=== PATIENT | male | born 1975 | race Caucasian/White ===

== ENCOUNTER 2021-01-24 21:15 | Emergency (ER) | payer OTHER ==
[2021-01-24] MEDS ORDERED: Acetaminophen 500 MG Tab PO ONE (21:31)
[2021-01-24] MEDS ORDERED: Dexamethasone 4 MG/ML SDV IM ONE (22:17)
--- NOTE | 2021-01-24 22:26 | EDM.PDOC ---
ED HPI GENERAL MEDICAL PROBLEM - General Chief Complaint: General Stated Complaint: s/t, fever, headache Time Seen by Provider: 01/24/21 21:42 Source of Information: Reports: Patient History Limitations: Reports: No Limitations - History of Present Illness INITIAL COMMENTS - FREE TEXT/NARRATIVE: John is a 45 yo male who presents to the ED with complaints of sore throat, headache and a fever. Symptoms started a couple days ago. Admits his son did have sinus symptoms roughly about 1 week ago. States he does have a history of strep throat. No known exposure to Covid. Denies any shortness of breath. Denies any loss of taste or smell. Denies any GI symptoms. 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 R) achilles tendon surgery Social & Family History - Tobacco Use Tobacco Use Status *Q: Never Tobacco User - Caffeine Use Caffeine Use: Reports: Soda - Recreational Drug Use Recreational Drug Use: No ED ROS GENERAL - Review of Systems Review Of Systems: See Below Constitutional: Reports: Fever, Chills HEENT: Reports: Sinus Problem, Throat Pain, Throat Swelling Respiratory: Denies: Shortness of Breath, Wheezing, Cough Cardiovascular: Reports: No Symptoms GI/Abdominal: Reports: No Symptoms : Reports: No Symptoms Musculoskeletal: Reports: No Symptoms. Denies: Muscle Pain, Muscle Stiffness Neurological: Reports: No Symptoms Psychiatric: Reports: No Symptoms ED EXAM, GENERAL - Physical Exam Exam: See Below Exam Limited By: No Limitations General Appearance: Alert, WD/WN, No Apparent Distress Ears: Normal External Exam, Normal Canal, Normal TMs Nose: Normal Inspection Throat/Mouth: Normal Lips, Normal Teeth, Normal Voice, No Airway Compromise, Inflammation (swelling/erythema posterior pharynx/uvula, no tonsillar exudate. ), Other (discomfort noted with swallowing. ) Head: Atraumatic, Normocephalic. No: Facial Swelling Neck: Normal Inspection, Supple. No: Lymphadenopathy (L), Lymphadenopathy (R) Respiratory/Chest: No Respiratory Distress, Lungs Clear, Normal Breath Sounds, No Accessory Muscle Use Cardiovascular: Regular Rate, Rhythm, No Murmur Neurological: Alert, Oriented Psychiatric: Normal Affect, Normal Mood Skin Exam: Warm, Dry, Intact Course - Vital Signs Last Recorded V/S: Last Vital Signs Temp 102.9 F H 01/24/21 21:34 Pulse 96 01/24/21 21:19 Resp 18 01/24/21 21:19 BP 162/97 H 01/24/21 21:19 Pulse Ox 95 01/24/21 21:19 - Orders/Labs/Meds Labs: Laboratory Tests 01/24/21 Range/Units 21:40 SARS CoV-2 RNA Rapid NEVAEH Positive H (NEGATIVE) Meds: Medications Discontinued Medications Generic Name Dose Route Start Last Admin Trade Name Roly PRN Reason Stop Dose Admin Acetaminophen 1,000 mg 01/24/21 21:31 01/24/21 21:34 Acetaminophen 500 Mg Tab PO 01/24/21 21:32 1,000 mg ONETIME ONE Administration Dexamethasone 8 mg 01/24/21 22:17 Dexamethasone 4 Mg/Ml Sdv IM 01/24/21 22:18 ONETIME ONE Departure - Departure Time of Disposition: 22:31 Disposition: Home, Self-Care 01 Clinical Impression: COVID-19 - Discharge Information *PRESCRIPTION DRUG MONITORING PROGRAM REVIEWED*: Not Applicable *COPY OF PRESCRIPTION DRUG MONITORING REPORT IN PATIENT MELQUIADES: Not Applicable Instructions: COVID-19 Frequently Asked Questions, COVID-19: What to Do If You Are Sick- [facility] (05/30/2020) Forms: ED Department Discharge Additional Instructions: 1) Dexamethasone injection given for swelling in throat tonight 2) Discussed Tylenol and ibuprofen, do not exceed 4000mg of Tylenol or 3200mg of ibuprofen in 24 hours 3) Rest and push fluids 4) May try Chloraseptic spray for throat discomfort 5) Vitamin C, D, Zinc discussed and dosages. 6) Order filled out for monoclonal antibodies. Pharmacist will call in the morning on when to come in. 7) Call or return if any complications, questions, worsening of symptoms or concerns. 8) Blood pressure did improve in the ED, recommend closely monitoring at home and if continues to be elevated, please follow up Sepsis Event Note (ED) - Evaluation Sepsis Screening Result: Possible Sepsis Risk - Focused Exam Vital Signs: Vital Signs Temp Temp Pulse Resp BP Pulse Ox 01/24/21 21:34 102.9 F H 01/24/21 21:19 102.9 F H 96 18 162/97 H 95 - Problem List & Annotations (1) COVID-19 SNOMED Code(s): 033537863 Code(s): U07.1 - COVID-19 Status: Acute - Assessment/Plan Plan: Patient's strep screen was negative. Covid positive. Discussed symptomatic cares. Reviewed monoclonal antibodies, which patient is a candidate for. Order written and pharmacy to be in contact with patient in the am. See additional instructions.
== END 2021-01-24 22:30 | disposition home or self-care (01) ==
LOC: CC.ED 21:15
DX: U07.1 COVID-19 (principal)
CPT/HCPCS: 87430; 96372; 99283; A9270-GY; J1100; U0002

== ENCOUNTER 2022-01-28 19:01 | Emergency (ER) | payer OTHER ==
[2022-01-28] MEDS: Ketorolac 30 MG/ML SDV IM ONE (19:37)
[2022-01-28] MEDS: Orphenadrine 60 MG/2 ML Inj IM ONE (19:38)
[2022-01-28] MEDS: Dexamethasone 4 MG/ML 5 ML MDV PO ONE (19:48)
== END 2022-01-28 20:45 | disposition home or self-care (01) ==
LOC: CC.ED 19:01
DX: M54.16 Radiculopathy, lumbar region (principal); E78.00 Pure hypercholesterolemia, unspecified; Z79.899 Other long term (current) drug therapy
CPT/HCPCS: 96372; 99283; J1885; J2360; J8540